=== PATIENT | female | born 1970 | race Caucasian/White ===

== ENCOUNTER → 2023-05-24 14:12 | Outpatient (REF) | payer BC, SELFPAY | LOC: HWRAD 14:12 | PROVIDERS: ATTENDING PHYSICIAN Internal Medicine Sports Medicine; FAMILY PHYSICIAN Family Medicine | DX: M48.061 Spinal stenosis, lumbar region without neurogenic claudication (principal); M25.571 Pain in right ankle and joints of right foot; M17.0 Bilateral primary osteoarthritis of knee | CPT/HCPCS: 72114; 73560; 73565; 73610 ==

== ENCOUNTER → 2023-07-20 08:51 | Outpatient (REF) | payer BC, SELFPAY | LOC: MRI 3T 08:51 | PROVIDERS: FAMILY PHYSICIAN Family Medicine | DX: M48.061 Spinal stenosis, lumbar region without neurogenic claudication (principal) | CPT/HCPCS: 72148 ==

== ENCOUNTER → 2023-08-16 10:03 | Outpatient (REF) | payer BC, SELFPAY | LOC: REG 10:03 | PROVIDERS: ATTENDING PHYSICIAN Internal Medicine Gastroenterology | DX: A04.72 Enterocolitis due to Clostridium difficile, not specified as recurrent (principal); Z83.719 Family history of colon polyps, unspecified | CPT/HCPCS: 87324; 87449; 89055 ==

== ENCOUNTER → 2023-08-26 13:56 | Outpatient (REF) | payer BC, SELFPAY | LOC: RAD 13:56 | PROVIDERS: ATTENDING PHYSICIAN Family Medicine | DX: R60.0 Localized edema (principal) | CPT/HCPCS: 93970 ==

== ENCOUNTER → 2023-08-27 14:55 | Outpatient (REF) | payer BC, SELFPAY | LOC: RAD 14:55 | PROVIDERS: ATTENDING PHYSICIAN Family Medicine | DX: R60.0 Localized edema (principal) | CPT/HCPCS: 93970 ==

== ENCOUNTER → 2023-09-05 06:37 | Day surgery (SDC) | payer BC, SELFPAY | LOC: GI 06:37 | PROVIDERS: ATTENDING PHYSICIAN Internal Medicine Gastroenterology | DX: Z12.11 Encounter for screening for malignant neoplasm of colon (principal); D12.3 Benign neoplasm of transverse colon; Z83.719 Family history of colon polyps, unspecified | CPT/HCPCS: 45380; 88305 ==

== ENCOUNTER → 2023-09-10 14:10 | Outpatient (REF) | payer BC, SELFPAY | LOC: HWRCS 14:10 | PROVIDERS: ATTENDING PHYSICIAN Family Medicine | DX: R06.83 Snoring (principal); R60.0 Localized edema | CPT/HCPCS: 93306 ==

== ENCOUNTER → 2023-12-25 14:07 | Outpatient (REF) | payer BC, SELFPAY | LOC: DHSLP 14:07 | PROVIDERS: ATTENDING PHYSICIAN Internal Medicine; FAMILY PHYSICIAN Family Medicine | DX: G47.19 Other hypersomnia (principal); R06.83 Snoring | CPT/HCPCS: 95800 ==